=== PATIENT | female | born 1965 | race Caucasian/White ===

== ENCOUNTER 2019-08-11 20:59 | Inpatient (IN) | payer MEDICAID ==
[~2019-08-11] VITALS: Ht 165.1 cm; Wt 98.5 kg
[2019-08-11 21:40] LABS: MEAN CORPUSCULAR HEMOGLOBIN 30.7 pg (27.0-34.8); MEAN CORPUSCULAR HGB CONC 33.3 g/dL (32.4-35.8); MEAN CORPUSCULAR VOLUME 92.2 fL (80-100); MEAN PLATELET VOLUME 9.1 fL (7.4-10.4); PLATELET COUNT 199 x10^3/uL (130-400); RED BLOOD COUNT 5.04 x10^6/uL (3.82-5.3); RED CELL DISTRIBUTION WIDTH 13.3 % (9.6-15.2)
[2019-08-11 21:52] LABS: ALBUMIN 3.7 g/dL (3.4-5.0); ANION GAP 9 mmol/L (5-15); CALCIUM 9.1 mg/dL (8.5-10.1); CHLORIDE 105 mmol/L (98-107); CREATININE 0.94 mg/dL (0.55-1.02)
[2019-08-11] MEDS ORDERED: CEFTRIAXONE PMX 1GM/50ML 50 ML IVPB ONE (22:00)
[2019-08-11] MEDS ORDERED: SODIUM CHLORIDE 0.9% 1,000ML IVBOLUS ONE ×2 (22:00→23:30)
[2019-08-11] MEDS ORDERED: VANCOMYCIN PER PHARMACY MC ONE (22:00)
--- NOTE | 2019-08-11 22:00 | NUR ---
LEFT LOWER LEG INJURY THAT HAPPENED 2 DAY AGO. NOW PT HAS LEG SWELLING, WARMTH AND REDNESS. ALSO C/O HEADACHE. 500 TYLENOL AND 600 MOTRIN GIVEN BY EMS [employer] PROGRAMMER. TP ATTAHED TO ALL MONITORS. CALL LIGHT WITHIN REACH.
[2019-08-11] MEDS ORDERED: CEFTRIAXONE PMX 1GM/50ML 50 ML ONE (22:01)
[2019-08-11 22:05] LABS: MD YES
[2019-08-11 22:07] LABS: BANDS%(MANUAL) 3 % (0-7); LYMPH#(MANUAL) 1.07 x10^3/uL (1-3.4); LYMPHS% (MANUAL) 4 % (22-44); MONOS% (MANUAL) 3 % (2-9); SEG#(MANUAL) 24.12 x10^3/uL (1.8-6.8); SEGS% (MANUAL) 90 % (42-75)
[2019-08-11 22:08] LABS: <PLATELET ESTIMATE> ADEQUATE; <PLT MORPHOLOGY> NORMAL PLT MORPH; <RBC MORPHOLOGY> NORMAL
[2019-08-11] MEDS ORDERED: ONDANSETRON 2MG/ML, 2ML IVPush PRN (22:30)
[2019-08-11] MEDS ORDERED: MORPHINE SULFATE 4 MG/ML, 1ML IVPush PRN (22:30)
[2019-08-11] MEDS ORDERED: VANCOMYCIN 1,100 MG in SODIUM CHLORIDE 0.9% 250 ML IV ONE (22:30)
[2019-08-11] MEDS ORDERED: MORPHINE SULFATE 4 MG/ML, 1ML ONE (22:34)
[2019-08-11] MEDS ORDERED: ONDANSETRON 2MG/ML, 2ML ONE (22:34)
[2019-08-11 23:25] VITALS: BP 137/81
[2019-08-12] MEDS ORDERED: VANCOMYCIN PER PHARMACY MC PRN
[2019-08-12] MEDS ORDERED: PHARMACOKINETIC MONITORING MC PRN (00:30)
[2019-08-12] MEDS ORDERED: ALPRazolam 1MG TAB PO PRN (01:00)
[2019-08-12] MEDS ORDERED: BUTALB/APAP/CAFFEINE 50MG/325MG/40MG PO PRN (01:00)
[2019-08-12] MEDS ORDERED: ONDANSETRON 2MG/ML, 2ML IVPush PRN (01:00)
[2019-08-12] MEDS ORDERED: IBUPROFEN 600 MG TABLET PO PRN (01:00)
[2019-08-12] MEDS ORDERED: BISACODYL 10 MG SUPP PR PRN (01:00)
[2019-08-12] MEDS ORDERED: OXYcodone/APAP 10/325MG TABLET PO PRN ×2 (01:30→11:00)
[2019-08-12] MEDS ORDERED: DEXT20TA8 PO (01:40)
[2019-08-12] MEDS: ENOXAPARIN 30 MG/0.3 ML SQ SCH ×2 (01:57→14:00)
[2019-08-12] MEDS: NICOTINE 14MG/24 HR PATCH.TD24 TD SCH (01:57)
[2019-08-12 02:51] LABS: ANION GAP 6 mmol/L (5-15); CHLORIDE 110 mmol/L (98-107); CREATININE 0.89 mg/dL (0.55-1.02)
[2019-08-12 03:02] VITALS: BP 93/69
[2019-08-12 07:29] LABS: ANION GAP 6 mmol/L (5-15); CHLORIDE 109 mmol/L (98-107)
[2019-08-12 07:38] LABS: MEAN CORPUSCULAR HEMOGLOBIN 30.1 pg (27.0-34.8); MEAN CORPUSCULAR HGB CONC 33.2 g/dL (32.4-35.8); MEAN CORPUSCULAR VOLUME 90.6 fL (80-100); MEAN PLATELET VOLUME 8.9 fL (7.4-10.4); PLATELET COUNT 187 x10^3/uL (130-400); RED BLOOD COUNT 4.52 x10^6/uL (3.82-5.3); RED CELL DISTRIBUTION WIDTH 12.9 % (9.6-15.2)
[2019-08-12 07:48] LABS: BASOPHILS % (AUTO) 0 % (0-1); EOSINOPHILS # (AUTO) 0.01 x10^3/uL (0-0.4); EOSINOPHILS % (AUTO) 0 % (1-7); LYMPHOCYTES # (AUTO) 0.59 x10^3/uL (1-3.4); LYMPHOCYTES % (AUTO) 3 % (22-44); MD SCAN; MONOCYTES # (AUTO) 0.43 x10^3/uL (0.2-0.8); MONOCYTES % (AUTO) 2 % (2-9); NEUTROPHILS # (AUTO) 19.65 x10^3/uL (1.8-6.8); NEUTROPHILS % (AUTO) 95 % (42-75)
[2019-08-12 08:23] VITALS: BP 103/68
[2019-08-12] MEDS: CEFTRIAXONE PMX 1GM/50ML 50 ML IV SCH ×2 (09:24→21:31)
[2019-08-12] MEDS ORDERED: GADOTERATE 10 MMOL/20 ML SYR ONE (10:31)
[2019-08-12] MEDS: SUMATRIPTAN 100 MG TABLET PO PRN (11:38)
[2019-08-12] MEDS: SODIUM CHLORIDE 0.9% 1,000 ML IV SCH ×2 (12:56→21:31)
[2019-08-12] MEDS: CLINDAMYCIN PMX 600MG/50ML 50 ML IV SCH ×2 (13:00→19:42)
[2019-08-12] MEDS: OXYcodone/APAP 5/325MG TABLET PO PRN (13:31)
[2019-08-12] MEDS: LINEZOLID PMX 600MG/300ML 300 ML IV SCH (14:14)
[2019-08-12 15:00] VITALS: BP 116/82
[2019-08-12] MEDS ORDERED: VANCOMYCIN 1,600 MG in SODIUM CHLORIDE 0.9% 250 ML IV SCH (15:00)
[2019-08-12] MEDS ORDERED: LIDOCAINE-MPF 2% ,5ML ONE (15:27)
[2019-08-12] MEDS ORDERED: FENTANYL PF 100 MCG/2ML ONE ×2 (15:33→16:44)
[2019-08-12] MEDS ORDERED: BUPIVACAINE/PF 0.5% ONE (15:39)
[2019-08-12] MEDS ORDERED: EPINEPHRINE 1 MG/ML, 1ML ONE (15:40)
[2019-08-12] MEDS ORDERED: FENTANYL PF 100 MCG/2ML IV PRN (16:00)
[2019-08-12] MEDS ORDERED: LABETALOL 5MG/ML, 20ML IV PRN (16:00)
[2019-08-12] MEDS ORDERED: MEPERIDINE/PF 25MG/ML,1ML IVPush PRN (16:00)
[2019-08-12] MEDS ORDERED: HYDROcodone/APAP 7.5-325MG/15ML UDC PO PRN (16:00)
[2019-08-12] MEDS ORDERED: ONDANSETRON 2MG/ML, 2ML IV PRN (16:00)
[2019-08-12] MEDS ORDERED: EPHEDRINE 50 MG/ML, 1ML IVPush PRN (16:00)
[2019-08-12] MEDS ORDERED: HYDROmorphone 2 MG/ML, 1ML IVPush PRN (16:00)
[2019-08-12] MEDS ORDERED: ACETAMINOPHEN 325 MG TABLET PO PRN (16:00)
[2019-08-12] MEDS ORDERED: hydrALAzine 20 MG/ML, 1ML IV PRN (16:00)
[2019-08-12] MEDS ORDERED: PROMETHAZINE 25 MG/ML, 1ML IV PRN (16:00)
[2019-08-12] MEDS ORDERED: DEXAMETHASONE 4 MG/ML, 1ML ONE ×2 (16:09)
[2019-08-12] MEDS ORDERED: MIDAZOLAM 1 MG/ML, 2ML ONE (16:10)
[2019-08-12] MEDS ORDERED: PROPOFOL 10 MG/ML, 20ML ONE (16:25)
[2019-08-12] MEDS ORDERED: ONDANSETRON 2MG/ML, 2ML ONE (16:36)
[2019-08-12] MEDS ORDERED: KETOROLAC 30 MG/1 ML ONE (16:36)
[2019-08-12] MEDS ORDERED: OXYcodone 5 MG/5 ML ORAL.SOL UDC ONE (18:53)
[2019-08-12] MEDS ORDERED: OXYcodone 5 MG/5 ML ORAL.SOL UDC PO PRN (19:00)
[2019-08-12 19:45] VITALS: BP 103/69
[2019-08-12] MEDS: GABAPENTIN 300 MG CAPSULE PO SCH (21:31)
[2019-08-13 00:47] VITALS: BP 105/71
[2019-08-13] MEDS: OXYcodone/APAP 5/325MG TABLET PO PRN ×4 (01:00→21:11)
[2019-08-13] MEDS: CLINDAMYCIN PMX 600MG/50ML 50 ML IV SCH ×4 (01:01→19:38)
[2019-08-13] MEDS: ENOXAPARIN 30 MG/0.3 ML SQ SCH ×2 (02:07→14:56)
[2019-08-13] MEDS: NICOTINE 14MG/24 HR PATCH.TD24 TD SCH (02:07)
[2019-08-13] MEDS: LINEZOLID PMX 600MG/300ML 300 ML IV SCH ×2 (02:08→14:54)
[2019-08-13 04:38] VITALS: BP 104/66
[2019-08-13 04:45] LABS: ALBUMIN 2.5 g/dL (3.4-5.0); ANION GAP 6 mmol/L (5-15); BASOPHILS % (AUTO) 0 % (0-1); CALCIUM 8.1 mg/dL (8.5-10.1); CHLORIDE 109 mmol/L (98-107); EOSINOPHILS % (AUTO) 0 % (1-7); LYMPHOCYTES # (AUTO) 0.43 x10^3/uL (1-3.4); LYMPHOCYTES % (AUTO) 4 % (22-44); MD NO; MEAN CORPUSCULAR HEMOGLOBIN 30.5 pg (27.0-34.8); MEAN CORPUSCULAR VOLUME 92.5 fL (80-100); MEAN PLATELET VOLUME 9.7 fL (7.4-10.4); MONOCYTES # (AUTO) 0.43 x10^3/uL (0.2-0.8); MONOCYTES % (AUTO) 4 % (2-9); NEUTROPHILS # (AUTO) 10.79 x10^3/uL (1.8-6.8); NEUTROPHILS % (AUTO) 93 % (42-75); PLATELET COUNT 172 x10^3/uL (130-400); RED BLOOD COUNT 4.17 x10^6/uL (3.82-5.3); RED CELL DISTRIBUTION WIDTH 13.3 % (9.6-15.2)
[2019-08-13 04:49] LABS: ALANINE AMINOTRANSFERASE 81 U/L (12-78); ALKALINE PHOSPHATASE 128 U/L (45-117); BILIRUBIN,TOTAL 0.4 mg/dL (0.2-1.0); CREATININE 1.09 mg/dL (0.55-1.02); TOTAL PROTEIN 6.1 g/dL (6.4-8.2)
[2019-08-13 07:19] VITALS: BP 92/64
[2019-08-13] MEDS: GABAPENTIN 300 MG CAPSULE PO SCH ×3 (09:10→21:10)
[2019-08-13] MEDS: SODIUM CHLORIDE 0.9% 1,000 ML IV SCH (09:11)
[2019-08-13 10:04] LABS: AMPHETAMINE SCREEN, URINE Positive (Negative); BARBITURATE SCREEN, URINE Negative (Negative); BENZODIAZEPINE SCREEN, URINE Positive (Negative); CANNABINOID SCREEN, URINE Positive (Negative); COCAINE SCREEN, URINE Negative (Negative); METHADONE SCREEN, URINE Negative (Negative); OPIATE SCREEN, URINE Positive (Negative)
[2019-08-13] MEDS: CEFTRIAXONE PMX 1GM/50ML 50 ML IV SCH ×2 (10:14→21:11)
[2019-08-13 12:52] VITALS: BP 108/57
[2019-08-13 19:44] VITALS: BP 103/66
[2019-08-14] MEDS: CLINDAMYCIN PMX 600MG/50ML 50 ML IV SCH ×4 (01:26→19:55)
[2019-08-14 01:45] VITALS: BP 108/78
[2019-08-14] MEDS: LINEZOLID PMX 600MG/300ML 300 ML IV SCH ×2 (01:57→16:23)
[2019-08-14] MEDS: ENOXAPARIN 30 MG/0.3 ML SQ SCH ×2 (01:58→14:58)
[2019-08-14] MEDS: NICOTINE 14MG/24 HR PATCH.TD24 TD SCH (01:58)
[2019-08-14] MEDS: OXYcodone/APAP 5/325MG TABLET PO PRN ×4 (02:50→21:42)
[2019-08-14 05:33] LABS: BASOPHILS # (AUTO) 0.02 x10^3/uL (0-0.1); BASOPHILS % (AUTO) 0 % (0-1); EOSINOPHILS # (AUTO) 0.06 x10^3/uL (0-0.4); EOSINOPHILS % (AUTO) 1 % (1-7); LYMPHOCYTES # (AUTO) 2.25 x10^3/uL (1-3.4); LYMPHOCYTES % (AUTO) 26 % (22-44); MD NO; MEAN CORPUSCULAR HEMOGLOBIN 30.4 pg (27.0-34.8); MEAN CORPUSCULAR HGB CONC 33.1 g/dL (32.4-35.8); MEAN CORPUSCULAR VOLUME 91.9 fL (80-100); MEAN PLATELET VOLUME 9.4 fL (7.4-10.4); MONOCYTES # (AUTO) 0.59 x10^3/uL (0.2-0.8); MONOCYTES % (AUTO) 7 % (2-9); NEUTROPHILS # (AUTO) 5.76 x10^3/uL (1.8-6.8); NEUTROPHILS % (AUTO) 66 % (42-75); PLATELET COUNT 213 x10^3/uL (130-400); RED BLOOD COUNT 4.03 x10^6/uL (3.82-5.3); RED CELL DISTRIBUTION WIDTH 13.3 % (9.6-15.2)
[2019-08-14] MEDS: SUMATRIPTAN 100 MG TABLET PO PRN (06:34)
[2019-08-14 06:45] VITALS: BP 90/55
[2019-08-14] MEDS: GABAPENTIN 300 MG CAPSULE PO SCH ×3 (08:41→19:55)
[2019-08-14] MEDS ORDERED: MAGNESIUM HYDROXIDE 8%, 30ML UDC PO PRN (10:30)
[2019-08-14] MEDS ORDERED: POLYETHYLENE GLYCOL 17 GM PACKET PO PRN (10:30)
[2019-08-14] MEDS ORDERED: DOCUSATE 100 MG CAPSULE ONE (10:32)
[2019-08-14] MEDS ORDERED: MAGNESIUM HYDROXIDE 8%, 30ML UDC ONE (10:33)
[2019-08-14] MEDS: CEFTRIAXONE PMX 1GM/50ML 50 ML IV SCH ×2 (10:35→21:42)
[2019-08-14] MEDS: DOCUSATE 100 MG CAPSULE PO SCH (10:39)
[2019-08-14 13:24] VITALS: BP 129/82
[2019-08-14] MEDS ORDERED: HYDROcodone/APAP 5/325 TABLET PO PRN (15:00)
[2019-08-14] MEDS ORDERED: OXYcodone/APAP 5/325MG TABLET ONE (15:14)
[2019-08-14 21:16] VITALS: BP 118/74
[2019-08-15] MEDS: CLINDAMYCIN PMX 600MG/50ML 50 ML IV SCH ×4 (02:29→20:34)
[2019-08-15] MEDS: ENOXAPARIN 30 MG/0.3 ML SQ SCH ×2 (02:32→14:49)
[2019-08-15] MEDS: NICOTINE 14MG/24 HR PATCH.TD24 TD SCH (02:33)
[2019-08-15 02:52] VITALS: BP 99/63
[2019-08-15] MEDS: LINEZOLID PMX 600MG/300ML 300 ML IV SCH ×2 (04:24→15:40)
[2019-08-15 05:14] LABS: BASOPHILS # (AUTO) 0.04 x10^3/uL (0-0.1); BASOPHILS % (AUTO) 1 % (0-1); EOSINOPHILS # (AUTO) 0.12 x10^3/uL (0-0.4); EOSINOPHILS % (AUTO) 2 % (1-7); LYMPHOCYTES % (AUTO) 42 % (22-44); MD NO; MEAN CORPUSCULAR HEMOGLOBIN 30.3 pg (27.0-34.8); MEAN CORPUSCULAR HGB CONC 32.9 g/dL (32.4-35.8); MEAN CORPUSCULAR VOLUME 92.1 fL (80-100); MEAN PLATELET VOLUME 8.9 fL (7.4-10.4); MONOCYTES # (AUTO) 0.76 x10^3/uL (0.2-0.8); MONOCYTES % (AUTO) 10 % (2-9); NEUTROPHILS # (AUTO) 3.38 x10^3/uL (1.8-6.8); NEUTROPHILS % (AUTO) 46 % (42-75); PLATELET COUNT 237 x10^3/uL (130-400); RED BLOOD COUNT 4.04 x10^6/uL (3.82-5.3); RED CELL DISTRIBUTION WIDTH 13.6 % (9.6-15.2)
[2019-08-15] MEDS ORDERED: FLU VACC QS2019-20 36MOS UP/PF 0.5 ML IM-VACC ONE (05:30)
[2019-08-15 06:52] VITALS: BP 128/86
[2019-08-15] MEDS: DOCUSATE 100 MG CAPSULE PO SCH (08:52)
[2019-08-15] MEDS: GABAPENTIN 300 MG CAPSULE PO SCH ×3 (08:52→20:34)
[2019-08-15] MEDS: OXYcodone/APAP 5/325MG TABLET PO PRN ×3 (08:53→20:35)
[2019-08-15] MEDS: CEFTRIAXONE PMX 1GM/50ML 50 ML IV SCH ×2 (10:10→22:15)
[2019-08-15 12:30] VITALS: BP 117/77
[2019-08-15] MEDS ORDERED: CEPH-368 PO (15:40)
[2019-08-15] MEDS ORDERED: SULF1TAB24 PO (15:40)
[2019-08-15 19:23] VITALS: BP 112/67
[2019-08-16] MEDS: OXYcodone/APAP 5/325MG TABLET PO PRN ×3 (00:51→11:22)
[2019-08-16 02:03] VITALS: BP 130/81
[2019-08-16] MEDS: ENOXAPARIN 30 MG/0.3 ML SQ SCH ×2 (02:14→13:31)
[2019-08-16] MEDS: NICOTINE 14MG/24 HR PATCH.TD24 TD SCH (02:14)
[2019-08-16] MEDS: CLINDAMYCIN PMX 600MG/50ML 50 ML IV SCH ×3 (02:14→08:26)
[2019-08-16] MEDS: LINEZOLID PMX 600MG/300ML 300 ML IV SCH (05:13)
[2019-08-16 06:48] VITALS: BP 122/75
[2019-08-16] MEDS: DOCUSATE 100 MG CAPSULE PO SCH (08:26)
[2019-08-16] MEDS: GABAPENTIN 300 MG CAPSULE PO SCH (08:26)
[2019-08-16 13:17] VITALS: BP 121/71
== END 2019-08-16 15:50 | disposition home health service (06) | DRG 720 ==
LOC: ED 22:29 → EDIP 22:30 → ED 22:34 → 4NE 23:20 → DCLOUNGE 08-16 15:44
PROVIDERS: ADMIT Internal Medicine; ATTEND Hospitalist
PROC: 0JBP0ZX Excision of Left Lower Leg Subcutaneous Tissue and Fascia, Open Approach, Diagnostic (ICD-10-PCS; principal; 2019-08-11)
DX: A41.9 Sepsis, unspecified organism (principal); S81.812A Laceration without foreign body, left lower leg, initial encounter; L03.116 Cellulitis of left lower limb; F17.210 Nicotine dependence, cigarettes, uncomplicated; F31.9 Bipolar disorder, unspecified; J45.909 Unspecified asthma, uncomplicated; F17.213 Nicotine dependence, cigarettes, with withdrawal; W18.30XA Fall on same level, unspecified, initial encounter; Y93.89 Activity, other specified; Y92.89 Other specified places as the place of occurrence of the external cause; Y99.8 Other external cause status; Z90.710 Acquired absence of both cervix and uterus
CPT/HCPCS: 36415; 80048; 80053; 80307; 82040; 83605; 84145; 85025; 87040; 87070; 87075; 87176; 87205; 96374; 99285; G0378; J0171; J0696; J1100; J1650; J1885; J2020; J2250; J2405; J2704; J3010; J3370; A9575; J2270; J7030; J7050

== ENCOUNTER → 2019-08-17 | Outpatient (CLI) | payer MEDICAID ==
[~2019-08-17] MED LIST: CEPH-368 PO; DEXT20TA8 PO; SULF1TAB24 PO
== END | disposition home or self-care (01) ==
LOC: WOUND 08:28
PROVIDERS: ATTEND Internal Medicine
DX: T81.89XA Other complications of procedures, not elsewhere classified, initial encounter (principal); F31.9 Bipolar disorder, unspecified; J45.909 Unspecified asthma, uncomplicated; L03.126 Acute lymphangitis of left lower limb; F11.90 Opioid use, unspecified, uncomplicated; F17.213 Nicotine dependence, cigarettes, with withdrawal; Z90.710 Acquired absence of both cervix and uterus; Y83.8 Other surgical procedures as the cause of abnormal reaction of the patient, or of later complication, without mention of misadventure at the time of the procedure; Y92.89 Other specified places as the place of occurrence of the external cause
CPT/HCPCS: 11042; 99215